=== PATIENT | female | born 1985 | race Hispanic/Latino ===

== ENCOUNTER 2023-11-21 17:30 | Emergency (ER) | payer BC, SELFPAY ==
[2023-11-21] VITALS (8 sets, daily range): BP systolic 117–124; BP diastolic 77–97; PULSE 66–99; RESP 15–18; TEMP 36.5; O2SAT 95–99
--- NOTE | ~2023-11-21 | XR_ITS ---
EXAMINATION: XR chest 2V Exam Date/Time: 11/21/2023 20:30 CDT HISTORY: cough, wheeze; no prior asthma dx Comparison: None. RESULT: Lines, tubes, and devices: None. Lungs and pleura: Clear. Cardiomediastinal silhouette: Normal. Other: No acute osseous or upper abdominal finding. IMPRESSION: No acute cardiopulmonary process. Reviewed, dictated and finalized at location K.
--- NOTE | 2023-11-21 19:47 | ED.RECABL ---
HPI - Recheck/Abnormal Lab/Rx General Chief Complaint: Recheck/Abnormal Lab/Rx Stated Complaint: hypertension Time Seen by Provider: 11/21/23 19:30 Source: patient and family () Mode of arrival: ambulatory Limitations: language barrier (Greenlandic speaking) History of Present Illness HPI narrative: Patient offered engineering intern services but she seems to indicate she would prefer her translate. Patient presents with concern for HTN as well as her chest feeling clogged. She checked her blood pressure at [facility] and it read High but when she checked it there again today it was 105/70. She has been fatigued, reporting a cough of 5 days duration. Denies chest pain or shortness of breath. No underlying respiratory conditions but she doesn't have a PCP and hasn't seen a provider in a long time. She does endorse hearing musical noises/wheezes. Currently menstruating on cycle. No dysuria, urgency, frequency, or hematuria. She denies sneezing or itchy/watery eyes. No fevers or chills. She went to Urgent Care first and was told to come to the ED. No prior HTN diagnosis. She had a headache yesterday for an hour. Urine output has been normal. Cough has been occasionally productive of yellow sputum but no hemoptysis. She took Cloricidin for symptoms . No LE edema. Related Data Allergies Allergy/AdvReac Type Severity Reaction Status Date / Time No Known Allergies Allergy Verified 11/21/23 17:47 [facility] Social History Social History (Updated 11/22/23 @ 23:56 by Kerry Ospina MD) Smoking status: Never smoker Living arrangements: with family Exam Narrative: GENERAL: Well-appearing, well-nourished, and in no acute distress. HEAD: Normocephalic, atraumatic. EYES: Non injected, non icteric ENT: Nares clear, no rhinorrhea or epistaxis. NECK: Supple. CHEST: Speaking in full sentences. No respiratory distress. Non labored. No accessory muscle usage. Patient has bilateral end expiratory wheezes. HEART: Regular rate and rhythm. . ABDOMEN: Soft, nondistended. EXTREMITIES: Normal range of motion. No bilateral lower extremity edema. SKIN: Warm, dry, no rash. NEURO: No focal deficits. Alert and oriented x3. PSYCH: Normal mood and affect. Course Vital Signs Vital signs: Vital Signs Temperature 97.7 F 11/21/23 17:41 Pulse Rate 99 11/21/23 17:41 Respiratory Rate 15 11/21/23 17:41 Blood Pressure 124/97 H 11/21/23 17:41 Pulse Oximetry 98 11/21/23 17:41 Oxygen Delivery Room Air 11/21/23 17:41 Temperature 97.7 F 11/21/23 17:41 Pulse Rate 77 11/21/23 21:51 Respiratory Rate 16 11/21/23 21:51 Blood Pressure 118/77 11/21/23 21:51 Pulse Oximetry 99 11/21/23 21:51 Oxygen Delivery Room Air 11/21/23 17:41 MDM - Recheck/Abnormal Lab/Rx MDM Narrative Medical decision making narrative: Patient presents with concerns for elevated blood pressure and chest congestion as well as a cough and fatigue. In the emergency department patient's vital signs show that she is afebrile with an elevated diastolic blood pressure of 97. Normalized on repeat so will not initiate BP meds. She does have diffuse wheezes on exam. While this might represent alternative diagnoses, there is concern that patient has undiagnosed asthma given she has not seen a medical provider. Will treat as asthma. Patient given steroid and nebulizer treatment. On reassessment wheezes are still present though more faint, much improved. Remains without labored breathing. patient denies any dysuria, urinary urgency or frequency, or hematuria independent of the fact that she is on her menstrual cycle right now. For this reason will not treat the urinalysis findings as a UTI. Patient discharged with Rx for albuterol and steroid and given contact information for a Salvadorean speaking PA where she can follow up. Strict ED return precautions. Differential Diagnosis Differential diagnosis: Likely other (acute viral syndrome;
[2023-11-21 19:52] LABS: Basophils Absolute Auto 0.1 K/mm3 (0.0-0.1); Basophils Percent Auto 0.9 % (0.2-1.2); Eosinophils Absolute Auto 0.8 K/mm3 (0-0.3); Eosinophils Percent Auto 8.1 % (0-4.4); Hematocrit 43.6 % (37.0-47.0); Hemoglobin 13.8 g/dL (12.0-15.0); Immature Granulocyte Absolute 0.03 K/mm3 (0.00-0.031); Immature Granulocyte Percent A 0.3 % (0-0.5); Lymphocytes Absolute Auto 2.68 K/mm3 (0.9-3.2); Lymphocytes Percent Auto 25.9 % (18.3-44.2); Mean Corpuscular HGB Conc 31.7 g/dl (32-36); Mean Corpuscular Volume 85.2 fl (80-100); Monocytes Absolute Auto 0.7 K/mm3 (0.1-0.6); Neutrophils Percent Auto 57.8 % (45.5-73.1); Platelet Count Result 297 k/mm3 (150-375); Red Blood Count 5.12 M/mm3 (4.2-5.4); Red Cell Distribution Width 13.4 % (11.5-14.5); White Blood Count 10.4 K/mm3 (4.5-10.0)
--- NOTE | 2023-11-21 19:58 | ECG_ITS ---
[facility] [address] Test Date: 2023-11-21 Pat Name: Rosette Armstrong Department: Room: Gender: F Edge Stitcher: : 1985 Requested By: Kerry Lowery Order Number: [id number] Pebbles MD: Carlos Garcia M.D. Measurements Intervals Tiona Rate: 72 P: 40 TX: 170 QRS: 17 QRSD: 83 T: 17 QT: 402 QTc: 443 Interpretive Statements SINUS RHYTHM T-WAVE ABNORMALITY IN THE ANTEROLATERAL LEADS, CONSIDER ISCHEMIA No previous ECG available for comparison Electronically Signed On 11-22-2023 13:56:05 CDT by Carlos Garcia M.D.
[2023-11-21 20:04] LABS: Alanine Aminotransferase 20 U/L (6-35); Albumin Level 4.7 g/dL (3.5-5.1); Alkaline Phosphatase 74 U/L (38-126); Anion Gap 8 mmol/L (4-12); Aspartate Amino Transferase 26 U/L (14-36); Bilirubin,Total 0.5 mg/dL (0.2-1.3); Blood Urea Nitrogen 14 mg/dL (7-17); Calcium 9.4 mg/dL (8.4-10.2); Carbon Dioxide 25 mmol/L (22-30); Chloride 105 mmol/L (98-107); Estimated Glomerular Filt Rate > 60; Glucose 87 mg/dL (65-110); Potassium 3.9 mmol/L (3.4-5.0); Sodium 138 mmol/L (137-145)
[2023-11-21] MEDS: predniSONE 20 MG TABLET 40 MG PO (20:07)
--- NOTE | 2023-11-21 20:15 | PCRCNOTE ---
RT to patient's room, patient to bathroom. Updraft treatment to be administered when patient returns.
[2023-11-21] MEDS: IPRATROPIUM 0.5 MG/ALBUTEROL SULFATE 2.5 MG AMPUL.NEB 3 ML INHALATION (20:19)
[2023-11-21 20:38] LABS: Influenza A QL RT-PCR Negative (Negative); Influenza B QL RT-PCR Negative (Negative); RSV RNA, RT-PCR Negative (Negative); SARS-CoV-2 RNA PCR Negative (Negative)
[2023-11-21 20:47] LABS: Appearance Urine Clear (Clear); Bacteria Urine Rare /hpf; Bilirubin Urine Negative (Negative); Blood Urine 3+ (Negative); Color Urine Yellow (Yellow); Glucose Urine UA Negative (Negative); Ketones Urine Negative (Negative); Leukocyte Esterase Ur 1+ LEU/UL (Negative); Nitrate Urine Negative (Negative); Non Pathogenic Casts 0-2; Protein Urine Negative (Negative); Specific Grav Ur 1.023 (1.001-1.035); Squamous Epithelial Cell Urine Few /hpf (Few); Urobilinogen Urine 0.2 mg/dL (<2.0); pH Urine 5.5 (5.0-9.0)
[2023-11-21 20:48] LABS: Add Urine Microscopic? YES
[2023-11-21 21:16] LABS: Pregnancy On Board Control Positive; Urine Pregnancy Test Negative
[2023-11-21] MEDS: ALBUTEROL SULFATE NEB 2.5 MG/3 ML INH INHALATION (21:24)
== END 2023-11-21 21:55 | disposition home or self-care (01) ==
PROVIDERS: Emergency Medicine; Emergency Provider Student in an Organized Health Care Education/Training Program
DX: J45.909 Unspecified asthma, uncomplicated (principal); D72.829 Elevated white blood cell count, unspecified; Z20.822 Contact with and (suspected) exposure to COVID-19; R94.31 Abnormal electrocardiogram [ECG] [EKG]
CPT/HCPCS: 36415; 71046; 80053; 81001; 81025; 83735; 85025; 87086; 87088; 87637; 93005; 94640; 99284; J7512

== ENCOUNTER 2024-12-13 08:06 | Emergency (ER) | payer BC, SELFPAY ==
[2024-12-13 08:16] VITALS: BP 138/89; PULSE 101; RESP 16; TEMP 36.6; O2SAT 98
--- NOTE | 2024-12-13 08:32 | ED.FEMALEGU ---
HPI - Female Genitourinary General Chief complaint: Urogenital-Female Stated complaint: urinary irritation Time Seen by Provider: 12/13/24 08:20 Source: patient and paraprofessional interpreter Mode of arrival: ambulatory Limitations: no limitations History of Present Illness HPI Narrative: Rosette is a 39 year old female patient presenting to the clinic today with c/o possible UTI. She reports days ago she started having burning with urination and lower abdominal pain and now the pain has radiated into the left side of her back. She denies any nausea, vomiting, diarrhea, or fevers. Denies any concern for STIs. Last menstrual period was 2 weeks ago. No concern for . Last bowel movement was yesterday and normal for the patient. She has not taken anything for pain. Rates pain 5/10. No history of kidney stones. Related Data Allergies Allergy/AdvReac Type Severity Reaction Status Date / Time No Known Allergies Allergy Verified 12/13/24 08:16 Review of Systems Review of Systems: Pertinent positives per HPI. Patient denies any fever, chills, rash, headache, visual changes, dizziness, cough, runny nose, sore throat, shortness of breath, chest pain, palpitations, nausea, vomiting, diarrhea, constipation. PMFSH Social History Social History Smoking status: Never smoker Living arrangements: with family Comments At the time of my signature, I reviewed and agree with the nursing past medical, surgical, social, and family history. There is no relevant family history pertinent to the patient complaint. Exam Narrative: General: Well-developed, well nourished, in no apparent distress. Head: Normocephalic, atraumatic. Cardio: Regular rate and rhythm, s1 and s2 normal, no murmur appreciated. Resp: Clear to auscultation bilaterally, no rhonchi, rales, wheezing or rubs. Abdomen: Soft, pliable, bowel sounds present in all quadrants, lower abdomen/suprapubic tender to palpation, no organomegly, positive left CVAT tenderness. Course Course Emergency Course: Portions of this record may have been created with voice recognition software. Level of Care: Express Care Visit Vital Signs Vital signs: Vital Signs Temperature 36.6 C 12/13/24 08:16 Pulse Rate 101 H 12/13/24 08:16 Respiratory Rate 16 12/13/24 08:16 Blood Pressure 138/89 12/13/24 08:16 Pulse Oximetry 98 12/13/24 08:16 Oxygen Delivery Room Air 12/13/24 08:16 Temperature 36.6 C 12/13/24 08:16 Pulse Rate 101 H 12/13/24 08:16 Respiratory Rate 16 12/13/24 08:16 Blood Pressure 138/89 12/13/24 08:16 Pulse Oximetry 98 12/13/24 08:16 Oxygen Delivery Room Air 12/13/24 08:16 Vital signs reviewed MDM - Female Genitourinary MDM Narrative Medical decision making narrative: At the time of visit patient is resting comfortably on the exam table. Patient appears to be nontoxic. Labs: Urinalysis positive for 2+ leukocytes and 2+ blood. Bedside test was negative. We will send urine for culture. Plan: I suspect patient has UTI. Patient developed burning with urination and lower abdominal pain prior to developing left-sided flank pain. No protein in the patient urine. Will place patient on Bactrim DS. Patient is not reporting any fevers, nausea, vomiting. Supportive measures were discussed with the patient and they voiced understanding discharge instructions and agrees to treatment plan. Return precautions reviewed Differential Diagnosis Differential diagnosis: Likely urinary tract infection, cystitis and other (Pyelonephritis, obstructing kidney stone, ureterolithiasis) Discharge Plan Discharge Clinical Impression: Urinary tract infection Qualifiers: Urinary tract infection type: acute cystitis Hematuria presence: with hematuria Qualified Code(s): N30.01 - Acute cystitis with hematuria Patient Disposition: Home Condition: Stable Instructions: Antibiotic Form, Urinary Tract Infection in Women (ED) Additional Instructions: El an?lisis de orina muestra 2 o m?s bacterias y 2 o m?s loly. [facility] Bactrim seg?n lo prescrito. Aumente la ingesta de l?quidos y mant?ngase justyna hidratado. L?mpiese la richy de adelante hacia atr?s. Puede usar toallitas h?medas. Evite los ba?os de shayla. Si tiene relaciones sexuales, orine antes y despu?s de las relaciones sexuales. Use ropa interior de algod?n. Evite la ropa ajustada sobre los genitales. Consulte con leahy m?dico de cabecera en adilia semana si los s?ntomas persisten. Si los s?ntomas empeoran, se recomienda acudir a urgencias si tiene fiebre que no se controla con Tylenol o Motrin, aumento del dolor, dificultad para orinar o empeoramiento del dolor abdominal. Urinalysis shows 2+ bacteria and 2+ blood Take Bactrim as prescribed Increase fluids and stay well hydrated Wipe front to back. May use wet wipes. Avoid tub baths If sexually active- pee before and after intercourse. Wear cotton panties Avoid tight clothing up against the genitals Follow up with your PCP in 1 week if symptoms persist. If symptoms worsen recommend going to the emergency room-fever not controlled by Tylenol or Motrin, increase in pain, problems urinating, or worsening of abdominal pain Patient Language: Afghan Prescriptions: New sulfamethoxazole-trimethoprim [Bactrim DS] 800-160 mg tablet 1 tablet PO Q12H 5 Days Qty: 10 0RF Follow-up/Referrals: PHYSICIAN,INGREDIENT HANDLER [Primary Care Provider] - Time of Disposition: 08:44 Quality NIHSS Nursing Documentation ED NIHSS nursing documentation: reviewed/agree
[2024-12-13 08:41] LABS: BEDSIDEPREGUCG Negative (Negative)
[2024-12-13 08:42] LABS: EDUAAPPEAR Clear; EDUABILI Negative (Negative); EDUABLOOD 2+ (Negative); EDUACOLOR1 Yellow; EDUAGLUCOSE Negative (Negative); EDUAKETONE Negative (Negative); EDUALEUKO 2+ (Negative); EDUANITRATE Negative (Negative); EDUAPROTEIN Negative (Negative); EDUASPGRAVITY 1.005; EDUAUROBILI 0.2
== END 2024-12-13 09:00 | disposition home or self-care (01) ==
PROVIDERS: Emergency Provider Nurse Practitioner Family
DX: N30.01 Acute cystitis with hematuria (principal)
CPT/HCPCS: 81003; 81025; 87086; 99213; G0463